=== PATIENT | female | born 1990 | race Caucasian/White ===

== ENCOUNTER 2020-02-22 19:30 | Emergency (ER) | payer BC ==
[2020-02-22] MEDS ORDERED: Sodium Chloride 0.9% 10 ML Syringe FLUSH PRN (19:46)
--- NOTE | 2020-02-22 19:49 | EDM.PDOC ---
ED HPI GENERAL MEDICAL PROBLEM - General Chief Complaint: General Stated Complaint: upper abdominal pain Time Seen by Provider: 02/22/20 19:49 Source of Information: Reports: Patient - History of Present Illness INITIAL COMMENTS - FREE TEXT/NARRATIVE: 3 day history waxing and waning with more severity today of mid upper abdominal pain. Normal bowel movement this morning with no change in pain. Denies any change with eating or drinking. Denies any issues with urination. Lower abdominal pressure radiates to the umbilicus region and upward epigastric. Epigastric discomfort mild with predominant periumbilical region. Bowel sounds are present. Home test negative. Onset Date: 02/19/20 Duration: Day(s):, Recurring, Waxing/Waning Location: Reports: Abdomen Quality: Reports: Burning, Pressure Severity: Moderate Improves with: Reports: None Worsens with: Reports: None Associated Symptoms: Reports: No Other Symptoms Upper Abdominal Pain Score (Numeric/FACES): 7 - Related Data Allergies Allergy/AdvReac Type Severity Reaction Status Date / Time Penicillins Allergy Cannot Verified 02/22/20 19:49 Remember sulfamethoxazole Allergy Cannot Verified 02/22/20 19:49 [From Bactrim] Remember trimethoprim [From Bactrim] Allergy Cannot Verified 02/22/20 19:49 Remember Home Meds: Home Meds [id number]/Iron Fumarate/FA/DSS [ 19 Tablet] 1 tab PO DAILY 02/22/20 [ History] Past Medical History HEENT History: Reports: None Cardiovascular History: Reports: None Respiratory History: Reports: None Gastrointestinal History: Reports: None Genitourinary History: Reports: None : 1 Para: 1 LMP (Approximate): Other (See Below) (Currently breast-feeding 7-month-old) Musculoskeletal History: Reports: None Neurological History: Reports: None Psychiatric History: Reports: None - Past Surgical History HEENT Surgical History: Reports: Adenoidectomy, Tonsillectomy Social & Family History - Family History Family Medical History: Noncontributory - Tobacco Use Smoking Status *Q: Never Smoker - Caffeine Use Caffeine Use: Reports: Coffee ED ROS GENERAL - Review of Systems Review Of Systems: Comprehensive ROS is negative, except as noted in HPI. ED EXAM, GENERAL - Physical Exam Exam: See Below Exam Limited By: No Limitations General Appearance: Alert, WD/WN, No Apparent Distress Ears: Normal External Exam, Normal Canal, Hearing Grossly Normal, Normal TMs Nose: Normal Inspection, Normal Mucosa, No Blood Throat/Mouth: Normal Inspection, Normal Lips, Normal Teeth, Normal Gums, Normal Oropharynx, Normal Voice, No Airway Compromise Head: Atraumatic, Normocephalic Neck: Normal Inspection, Supple, Non-Tender, Full Range of Motion Respiratory/Chest: No Respiratory Distress, Lungs Clear, Normal Breath Sounds, No Accessory Muscle Use, Chest Non-Tender Cardiovascular: Normal Peripheral Pulses, Regular Rate, Rhythm, No Edema, No Gallop, No JVD, No Murmur, No Rub GI/Abdominal: Normal Bowel Sounds, Soft, No Organomegaly ( and mild epigastric) , No Distention, No Mass, Tender (Umbilical region). No: Non-Tender (Female) Exam: Deferred Rectal (Female) Exam: Deferred Back Exam: Normal Inspection, Full Range of Motion, NT Extremities: Normal Inspection, Normal Range of Motion, Non-Tender, Normal Capillary Refill, No Pedal Edema Neurological: Alert, Oriented, CN II-XII Intact, Normal Cognition, Normal Gait, Normal Reflexes, No Motor/Sensory Deficits Psychiatric: Normal Affect, Normal Mood Skin Exam: Warm, Dry, Intact, Normal Color, No Rash Lymphatic: No Adenopathy Course - Vital Signs Last Recorded V/S: Last Vital Signs Temp 35.6 C L 02/22/20 19:40 Pulse 86 02/22/20 19:40 Resp 18 02/22/20 19:40 BP 148/74 H 02/22/20 19:40 Pulse Ox 96 02/22/20 19:40 - Orders/Labs/Meds Orders: Active Orders 24 hr Category Date Time Status Peripheral IV Care [RC] . DIRECTED Care 02/22/20 19:46 Active Abdomen Pelvis wo Cont [CT] Stat Exams 02/22/20 21:03 Ordered Sodium Chloride 0.9% [Saline Flush] Med 02/22/20 19:46 Active 10 ml FLUSH Q8HR PRN Peripheral IV Insertion Adult [OM.PC] Routine Oth 02/22/20 19:46 Ordered Medication Orders Sodium Chloride (Saline Flush) 10 ml FLUSH Q8HR PRN PRN Reason: keep vein open Labs: Laboratory Tests 02/22/20 02/22/20 02/22/20 Range/Units 19:50 20:08 20:08 WBC 8.17 (5.00-10.00) 10^3/uL RBC 4.99 (3.80-5.50) 10^6/uL Hgb 15.2 (12.0-16.0) g/dL Hct 44.0 (37.0-47.0) % MCV 88.2 (82.0-92.0) fL MCH 30.5 (27.0-31.0) pg MCHC 34.5 (32.0-36.0) g/dL RDW 12.1 (11.5-14.5) % Plt Count 223 (150-400) 10^3/uL MPV 9.1 (7.4-10.4) fL Immature Gran % (Auto) 0.5 (0.0-5.0) % Neut % (Auto) 70.0 (50.0-70.0) % Lymph % (Auto) 22.3 (20.0-40.0) % Winn % (Auto) 5.5 (2.0-8.0) % Eos % (Auto) 1.6 (1.0-3.0) % Baso % (Auto) 0.1 (0.0-1.0) % Immature Gran # (Auto) 0.04 (0.00-0.50) 10^3/uL Neut # (Auto) 5.72 (2.50-7.00) 10^3/uL Lymph # (Auto) 1.82 (1.00-4.00) 10^3/uL Winn # (Auto) 0.45 (0.10-0.80) 10^3/uL Eos # (Auto) 0.13 (0.10-0.30) 10^3/uL Baso # (Auto) 0.01 (0.00-0.10) 10^3/uL Sodium 142 (136-145) mmol/L Potassium 3.8 (3.3-5.3) mmol/L Chloride 102 (98-115) mmol/L Carbon Dioxide 27.8 (21.0-32.0) mmol/L Anion Gap 16.0 H (5-15) mmol/L BUN 9 (6-25) mg/dL Creatinine 0.65 (0.51-1.17) mg/dL Est Cr Clr Drug Dosing TNP Estimated GFR (MDRD) > 60 mL/min Glucose 97 (75 - 99) mg/dL Calcium 9.3 (8.7-10.3) mg/dL Total Bilirubin 0.6 (0.2-1.0) mg/dL AST 15 (15-37) U/L ALT 27 (12-78) U/L Alkaline Phosphatase 67 (46-116) IU/L Total Protein 7.4 (6.4-8.2) g/dL Albumin 4.02 (3.00-4.80) g/dL HCG, Qual Negative (NEGATIVE) Specimen Type . Urine Color Yellow (YELLOW) Urine Appearance Clear (CLEAR) Urine pH 5.5 (5.0-9.0) Ur Specific [place] 1.025 (1.005-1.030) Urine Protein Negative (NEGATIVE) mg/dL Urine Glucose (UA) Negative (NEGATIVE) mg/dL Urine Ketones >=160 H (NEGATIVE) mg/dL Urine Occult Blood Trace-lysed H (NEGATIVE) Urine Nitrite Negative (NEGATIVE) Urine Bilirubin Small H (NEGATIVE) Urine Urobilinogen 0.2 (0.2-1.0) E.U./dL Ur Leukocyte Esterase Negative (NEGATIVE) Urine RBC 0-5 (0-5) /HPF Urine WBC 0-5 (0-5) /HPF Ur Epithelial Cells Many H /LPF Urine Bacteria Occasional (NONE TO FEW) /HPF Meds: Medications Generic Name Dose Route Start Last Admin Trade Name Freq PRN Reason Stop Dose Admin Sodium Chloride 10 ml 02/22/20 19:46 Saline Flush FLUSH Q8HR PRN keep vein open Discontinued Medications Generic Name Dose Route Start Last Admin Trade Name Freq PRN Reason Stop Dose Admin Diphenhydramine HCl 100 mg 02/22/20 22:15 02/22/20 22:26 Benadryl PO 02/22/20 22:16 Not Given ONETIME ONE Departure - Departure Time of Disposition: 22:29 Disposition: Home, Self-Care 01 Condition: Fair Clinical Impression: Abdominal pain, Pruritic dermatitis, Enteritis - Discharge Information *PRESCRIPTION DRUG MONITORING PROGRAM REVIEWED*: Not Applicable *COPY OF PRESCRIPTION DRUG MONITORING REPORT IN PATIENT JESSICA: Not Applicable Referrals: Lisa Pearson PA-C [Physician Indirect Sales Exec] - Shobha Dobson MD [Primary Care Provider] - Forms: ED Department Discharge Additional Instructions: Benadryl 50 mg was administered here orally. You may repeat that in 6-8 hours as needed for your itching and also to help you sleep. Call your [facility] clinic in [place] tomorrow morning as soon as they open to obtain a virtual visit for consultation and consideration for colonoscopy to be performed here in the [facility] by Dr. Gilberto Quintero on 23 February. With the findings of multiple small bowel loops including the terminal ileum having mild thickening with mesenteric adenopathy, colonoscopy being performed prior to any treatment would give a definitive diagnosis if it involves the terminal ileum and beyond into the large bowel. Maintain good fluid intake to assure hydration status is adequate. Avoid eating any hard to digest foods over the course of the next 24 hours in the event that you are to undergo bowel prep for colonoscopy as discussed. Humphreys diet would be most beneficial at this time. Treatment options for enteritis versus other colon issues will be discussed pending the results of the upcoming consult and potential procedure. Sepsis Event Note - Focused Exam Vital Signs: Vital Signs Temp Pulse Resp BP Pulse Ox 02/22/20 19:40 35.6 C L 86 18 148/74 H 96 Date Exam was Performed: 02/22/20 Time Exam was Performed: 22:49 - Problem List & Annotations (1) Abdominal pain SNOMED Code(s): 21199070 Code(s): R10.9 - UNSPECIFIED ABDOMINAL PAIN Status: Acute Qualifiers: Abdominal location: epigastric Qualified Code(s): R10.13 - Epigastric pain (2) Enteritis SNOMED Code(s): 88504541 Code(s): K52.9 - NONINFECTIVE GASTROENTERITIS AND COLITIS, UNSPECIFIED Status: Acute (3) Pruritic dermatitis SNOMED Code(s): 654008599 Code(s): L29.9 - PRURITUS, UNSPECIFIED Status: Acute - Problem List Review Problem List Initiated/Reviewed/Updated: Yes - My Orders Last 24 Hours: My Active Orders 02/22/20 19:46 Peripheral IV Care [RC] . DIRECTED Sodium Chloride 0.9% [Saline Flush] 10 ml FLUSH Q8HR PRN Peripheral IV Insertion Adult [OM.PC] Routine 02/22/20 21:03 Abdomen Pelvis wo Cont [CT] Stat - Assessment/Plan Last 24 Hours: My Active Orders 02/22/20 19:46 Peripheral IV Care [RC] . DIRECTED Sodium Chloride 0.9% [Saline Flush] 10 ml FLUSH Q8HR PRN Peripheral IV Insertion Adult [OM.PC] Routine 02/22/20 21:03 Abdomen Pelvis wo Cont [CT] Stat Plan: Benadryl 50 mg was administered here orally. You may repeat that in 6-8 hours as needed for your itching and also to help you sleep. Call your [facility] clinic in [place] tomorrow morning as soon as they open to obtain a virtual visit for consultation and consideration for colonoscopy to be performed here in the [facility] by Dr. Gilberto Quintero on 23 February. With the findings of multiple small bowel loops including the terminal ileum having mild thickening with mesenteric adenopathy, colonoscopy being performed prior to any treatment would give a definitive diagnosis if it involves the terminal ileum and beyond into the large bowel. Maintain good fluid intake to assure hydration status is adequate. Avoid eating any hard to digest foods over the course of the next 24 hours in the event that you are to undergo bowel prep for colonoscopy as discussed. Humphreys diet would be most beneficial at this time. Treatment options for enteritis versus other colon issues will be discussed pending the results of the upcoming consult and potential procedure.
[2020-02-22 20:41] LABS: CHLORIDE,CL 102 mmol/L (98-115); SODIUM,NA 142 mmol/L (136-145)
[2020-02-22 22:09] VITALS: BP 148/74; PULSE 86
[2020-02-22] MEDS ORDERED: diphenhydrAMINE 25 MG Cap PO ONE (22:15)
--- NOTE | 2020-02-23 07:36 | CT ---
[id number] CT/CT Abdomen Pelvis WO IV Exam: CT Abdomen Pelvis WO IV Clinical Data: ABDOMINAL PAIN COMPARISON: NO PREVIOUS SIMILAR EXAM IS AVAILABLE FINDINGS: A small amount free fluid is seen in the pelvis This likely is physiologic The liver and spleen, kidneys and adrenals, pancreas and aorta are unremarkable There is no evidence of appendicitis The gallbladder is not distended There are some limitations of the exam without IV contrast The pelvis shows no mass or adenopathy IMPRESSION: SMALL AMOUNT OF FREE FLUID IN PELVIS LIKELY PHYSIOLOGIC CONSIDER FOLLOW-UP IF NEEDED Nile Belcher MD 02/23/20 0736 Thank you for allowing us to participate in the care of your patient.
[2020-02-24] MEDS ORDERED: Ketamine 200 MG/20 ML MDV ONE (09:19)
[2020-02-24] MEDS ORDERED: Propofol 200 MG/20 ML SDV ONE (09:19)
[2020-02-24] MEDS ORDERED: Midazolam 1 MG/ML 2 ML SDV ONE (09:19)
== END 2020-02-22 22:45 | disposition home or self-care (01) ==
LOC: KA.ED 19:30
DX: K52.9 Noninfective gastroenteritis and colitis, unspecified (principal); L30.9 Dermatitis, unspecified; Z88.0 Allergy status to penicillin; Z88.2 Allergy status to sulfonamides
CPT/HCPCS: 36415; 74176; 80053; 81001; 83690; 84703; 85025; 99284-25

== ENCOUNTER 2020-02-24 10:39 | Day surgery (SDC) | payer BC ==
[~2020-02-24 10:39] MED LIST: Sodium Chloride 0.9% 10 ML Syringe FLUSH PRN
[2020-02-24] MEDS ORDERED: Lidocaine 2% 5 ML SDV ONE (10:43)
[2020-02-24] MEDS: Lactated Ringers 1,000 ML IV SCH (11:22)
--- NOTE | 2020-02-24 11:30 | PCM.PN ---
- General Info Date of Service: 02/24/20 - Review of Systems Systems Review Comment:: 30-year-old female with a history of mid abdominal pain. This is been associated with decreased appetite and weight loss. A recent CT scan was thought to show findings consistent with enteritis. Patient denies heartburn but with persistence and severity of her pain she is referred for EGD and colonoscopy. She notes a remote family history of colon cancer but no known family history of small bowel problems. She is medically stable to proceed today. I have discussed the proposed upper and lower endoscopy with the patient. She is very familiar with these procedures and understands risks. She agrees to proceed. - Patient Data Vitals - Most Recent: Last Vital Signs Temp 96.4 F L 02/24/20 11:03 Pulse 95 02/24/20 11:03 Resp 16 02/24/20 11:03 BP 113/69 02/24/20 11:03 Pulse Ox 98 02/24/20 11:03 Lab Results Last 24 Hours: Laboratory Results - last 24 hr 02/24/20 Range/Units 10:55 Urine HCG, Qual Negative (NEGATIVE) Med Orders - Current: Current Medications Lactated Ringer's (Ringers, Lactated) 1,000 mls @ 50 mls/hr IV ASDIRECTED [facility] Last Admin: 02/24/20 11:22 Dose: 50 mls/hr Sodium Chloride (Saline Flush) 10 ml FLUSH Q8HR PRN PRN Reason: keep vein open Sepsis Event Note - Focused Exam Vital Signs: Vital Signs Temp Pulse Resp BP Pulse Ox 02/24/20 11:03 96.4 F L 95 16 113/69 98 Date Exam was Performed: 02/24/20 Time Exam was Performed: 11:28 - Problem List Review Problem List Initiated/Reviewed/Updated: Yes - My Orders Last 24 Hours: My Active Orders 02/23/20 13:39 Resuscitation Status Routine 02/24/20 10:30 Peripheral IV Care [RC] . DIRECTED Lactated Ringers [Ringers, Lactated] 1,000 ml IV ASDIRECTED Sodium Chloride 0.9% [Saline Flush] 10 ml FLUSH Q8HR PRN Peripheral IV Insertion Adult [OM.PC] Routine 02/24/20 11:00 Patient to Empty Bladder [RC] ASDIRECTED 02/24/20 11:30 Verify Patient Consent Obtain [RC] ASDIRECTED 02/24/20 Breakfast Nothing Per Oral Diet [DIET] - Assessment Assessment:: Abdominal pain and weight loss Abnormal bowel on CT scan - Plan Plan:: EGD and colonoscopy
[2020-02-24] MEDS ORDERED: Lactated Ringers 1,000 ML ONE (11:36)
[2020-02-24] MEDS ORDERED: Propofol 200 MG/20 ML SDV ONE (11:36)
[2020-02-24] MEDS ORDERED: Midazolam 1 MG/ML 2 ML SDV IV ONE (12:07)
[2020-02-24] MEDS ORDERED: Propofol 200 MG/20 ML SDV IV ONE (12:07)
[2020-02-24] MEDS ORDERED: Ketamine 200 MG/20 ML MDV IV ONE ×2 (12:07)
[2020-02-24] MEDS ORDERED: Lidocaine 2% 5 ML SDV INJECT ONE (12:07)
--- NOTE | 2020-02-24 13:07 | PCM.OPNOTE ---
- General Post-Op/Procedure Note Date of Surgery/Procedure: 02/24/20 Operative Procedure(s): EGD with Biopsy. Colonoscopy with Biopsy Findings: Normal upper endoscopy Acute inflammation with erosions in terminal ileum near IC Valve Colon otherwise normal Pre Op Diagnosis: Abdominal Pain Post-Op Diagnosis: Crohn's Disease of terminal ileum Anesthesia Technique: [facility] [place] Primary Surgeon: Gilberto Quintero Pathology: Biopsies of Duodenum, Gastric Antrum, Terminal Ileum EBL in mLs: 4 Complications: None Condition: Good
--- NOTE | 2020-02-24 13:52 | OR ---
DATE OF SURGERY: 02/24/2020 SURGEON: Gilberto Quintero MD REFERRING PROVIDER: Lisa Pearson. PREOPERATIVE DIAGNOSIS: Abdominal pain. POSTOPERATIVE DIAGNOSIS: Crohn disease of the terminal ileum. OPERATION PERFORMED: Esophagogastroduodenoscopy with biopsy and colonoscopy with biopsy. INDICATIONS FOR SURGERY: This 30-year-old female has had a 1-week history of unexplained mid abdominal pain. Recent CT scan suggested possible small bowel abnormality and she is referred for upper and lower endoscopy. FINDINGS: On upper endoscopy, the patient's esophagus, stomach and duodenum to the 4th portion appeared normal. No visible signs of inflammation, ulcers, or anatomic abnormalities were seen. On colonoscopy, the patient had a localized area of acute inflammation with some mucosal erosion noted at the terminal ileum adjacent to the ileocecal valve. This extended from the ileocecal valve proximally for about 5 cm. The terminal ileum proximal to this region appeared normal. The colon appeared normal. DESCRIPTION OF PROCEDURE: The patient was taken to the operating room. She was given intravenous sedation and with her in the left lateral decubitus position, the Olympus gastroscope was advanced through a mouth guard into the oral cavity. This was then carefully advanced under direct visualization down into the esophagus and then through the esophagus, stomach, and into the duodenum where examination to the 4th portion is performed. Because of the patient's symptoms, random biopsies were taken of the duodenum, even though the mucosa here looked normal. The scope was withdrawn back into the stomach where full examination including retroflexed examination of the fundus was performed. Random biopsies of the antrum were taken to rule out H pylori. The GE junction and esophagus were then re-examined as the scope was withdrawn. Attention is turned to colonoscopy. Digital rectal exam was performed showing no rectal masses. The Olympus colonoscope was inserted into the rectum. Retroflexed examination of the rectal canal is performed. The scope was then carefully advanced under direct visualization through the entire length of the colon until the cecum is reached. Cecal acquisition is confirmed by noting the normal internal cecal anatomy including the appendiceal orifice and ileocecal valve and the light was also noted to transilluminate the abdominal wall in the right lower quadrant. The ileocecal valve was cannulated and the terminal ileum examined. More proximally, the terminal ileum appeared normal, but distally near the ileocecal valve, the terminal ileum mucosa appeared acutely inflamed with hyperemia and some erosions. Random biopsies of both the more proximal normal-appearing terminal ileum as well as the more distal abnormal-appearing terminal ileum were taken. The scope was then slowly withdrawn sequentially re-examining the colonic segments until the entire colon and rectum have been fully examined. The scope was removed and the patient was taken from the operating room in satisfactory condition. ESTIMATED BLOOD LOSS: 4 mL. COMPLICATIONS: None. PROGNOSIS: Good. /[id number]/MODL
== END 2020-02-24 14:54 | disposition home or self-care (01) ==
LOC: KA.SDS 10:39
PROVIDERS: ATTEND Surgery
DX: K29.50 Unspecified chronic gastritis without bleeding (principal); K52.9 Noninfective gastroenteritis and colitis, unspecified; K63.3 Ulcer of intestine; K50.00 Crohn's disease of small intestine without complications; Z80.0 Family history of malignant neoplasm of digestive organs
CPT/HCPCS: 81025; J2001; J2250; J2704; J7120